=== PATIENT | male | born 1970 | race Caucasian/White ===

== ENCOUNTER → 2016-04-25 | Outpatient (REF) | payer OTHER | LOC: M LAB REF 12:12 | PROVIDERS: ATTEND Physician Assistant Medical | DX: R50.9 Fever, unspecified (principal) ==

== ENCOUNTER 2023-07-05 21:07 | Emergency (ER) | payer OTHER ==
[~2023-07-05] VITALS: Ht 182.9 cm; Wt 97.7 kg
[2023-07-05 21:09] VITALS: BP 134/89; TEMP 98.6; O2SAT 97
[2023-07-05] MEDS: BOOSTRIX VACCINE (TETANUS/DIPHTH/ACEL. PERTUSSIS) 0.5ML SYR IM.IMMUN ONE (21:52)
[2023-07-05] MEDS ORDERED: LIDOCAINE 1% MDV 20ML VIAL SC ONE (22:25)
== END 2023-07-05 23:10 | disposition home or self-care (01) ==
LOC: M ED 21:07
DX: S61.210A Laceration without foreign body of right index finger without damage to nail, initial encounter (principal); W29.3XXA Contact with powered garden and outdoor hand tools and machinery, initial encounter; Y92.009 Unspecified place in unspecified non-institutional (private) residence as the place of occurrence of the external cause; Y93.9 Activity, unspecified; Y99.9 Unspecified external cause status